=== PATIENT | male | born 1975 | race Caucasian/White ===

== ENCOUNTER 2018-03-03 07:34 | Emergency (ER) | payer MEDICARE, MEDICAID ==
[2018-03-03 07:34] VITALS: BMI 28.5
[2018-03-03 07:44] VITALS: RESP 18; O2SAT 97
--- NOTE | 2018-03-03 08:20 | C.PDOC ---
History Of Present Illness 42 y/o male presents to ED with c/o low back pain for 4 days after sneezing and straining back. Patient denies weakness, numbness, bowel/bladder incontinence, abdominal pain, dysuria, saddle anesthesia or any other complaints at this time Chief Complaint (Nursing): Back Pain History Per: Patient History/Exam Limitations: no limitations Onset/Duration Of Symptoms: Days Current Symptoms Are (Timing): Still Present Quality Of Discomfort: "Pain" Past Medical History Reviewed: Historical Data, Nursing Documentation, Vital Signs Vital Signs: Last Vital Signs Temp 97.8 F 03/03/18 07:41 Pulse 72 03/03/18 07:41 Resp 18 03/03/18 07:41 BP 143/90 03/03/18 07:41 Pulse Ox 97 03/03/18 07:41 - Medical History PMH: Bronchitis, HTN, Hypercholesterolemia Surgical History: No Surg Hx Family History: States: No Known Family Hx - Social History Hx Tobacco Use: Yes Hx Alcohol Use: Yes Hx Substance Use: No - Immunization History Hx Tetanus Toxoid Vaccination: No Hx Influenza Vaccination: Yes (7 days ago) Hx Pneumococcal Vaccination: No Review Of Systems Except As Marked, All Systems Reviewed And Found Negative. Musculoskeletal: Positive for: Back Pain Physical Exam - Physical Exam Appears: Non-toxic, No Acute Distress Skin: Warm, Dry, No Rash Head: Atraumatic, Normacephalic Eye(s): bilateral: Normal Inspection Oral Mucosa: Moist Neck: Normal ROM, No Paracervical Tenderness, Supple Cardiovascular: Rhythm Regular Respiratory: Normal Breath Sounds, No Rales, No Rhonchi, No Wheezing Gastrointestinal/Abdominal: Soft, No Tenderness, No Guarding, No Rebound Back: No CVA Tenderness, No Paraspinal Tenderness, Straight Leg Raising (right leg) Neurological/Psych: Oriented x3, Normal Speech, Normal Cognition, Normal Motor, Normal Sensation ED Course And Treatment O2 Sat by Pulse Oximetry: 97 Medical Decision Making Medical Decision Making: Impression: Lumbar strain Plan: Valium, Toradol administered. Progress: On re -evaluation patient states pain improved and agrees with plan of discharge. Disposition - Disposition Referrals: [facility] [place] [facility] [Outside] [facility] [Outside] Disposition: HOME/ ROUTINE Disposition Time: 09:33 Condition: GOOD Prescriptions: Cyclobenzaprine [Cyclobenzaprine HCl] 10 mg PO Q8 5 Days #15 tab Ibuprofen [Motrin] 600 mg PO Q6 5 Days #20 tab Instructions: Lumbar Muscle Strain (DC) Forms: [facility] ([place]) - Clinical Impression Clinical Impression: Low back strain, Lumbar sprain - Scribe Statement The provider has reviewed the documentation as recorded by the Susanibbreonna De Jesus All medical record entries made by the Susanibbreonna were at my direction and personally dictated by me. I have reviewed the chart and agree that the record accurately reflects my personal performance of the history, physical exam, medical decision making, and the department course for this patient. I have also personally directed, reviewed, and agree with the discharge instructions and disposition.
[2018-03-03 09:34] VITALS: BP 113/76; PULSE 62; TEMP 98
== END 2018-03-03 09:21 | disposition home or self-care (01) ==
LOC: C.ER 07:34
DX: S39.012A Strain of muscle, fascia and tendon of lower back, initial encounter (principal); S33.5XXA Sprain of ligaments of lumbar spine, initial encounter; X58.XXXA Exposure to other specified factors, initial encounter
CPT/HCPCS: 96372; 99283; J1885

== ENCOUNTER 2018-08-25 18:48 | Outpatient (CLI) | payer MEDICARE, MEDICAID | END 2018-08-25 18:49 | disposition home or self-care (01) | LOC: C.SLEEP 18:48 | DX: G47.33 Obstructive sleep apnea (adult) (pediatric) (principal) ==